=== PATIENT | female | born 1995 | race Caucasian/White ===

== ENCOUNTER → 2024-03-21 07:07 | Outpatient (CLI) | payer OTHER, MEDICAID, SELFPAY ==
--- NOTE | 2024-03-21 07:09 | DI.US.S_ITS ---
PROCEDURE: US OB >= 14 WEEKS FETUS INDICATIONS: ANATOMY SCAN OUTSIDE/PRIOR DATING DATA: Last menstrual period (LMP): Unknown. LMP-based estimated date of delivery (ARTEM): Not applicable. First dating scan (date and location): Unknown. Estimated date of delivery (ARTEM) from first dating scan: Not applicable. The calculations are made using the ARTEM of 07/13/2024. TECHNIQUE: Real-time scanning was performed of the fetus, with image documentation and biometric measurements. Endovaginal scanning: Not performed COMPARISON: None. FINDINGS: General: A single living intrauterine gestation is present. Presentation: Vertex. Placenta: Placental position is anterior , without previa. Amniotic fluid index: 15.8 cm, normal range is 5-24 cm. Single deepest vertical pocket is 4.4 cm. heart rate: 135 beats per minute. Maternal cervical canal: 5 cm long. Normal lower limit is 2.5 cm. biometrics: Biparietal diameter: 5.6 cm, 23 weeks 0 days Head circumference: 20.8 cm, 22 weeks 6 days Abdominal circumference: 19.4 cm, 24 weeks 1 day Femur length: 4.2 cm, 23 weeks 5 days Clinically estimated gestational age: 23 weeks 5 days Composite gestational age from present scan: 23 weeks 3 days Estimated weight and percentile: 632 g, 46 percentile Anatomic survey: Neuro: Ventricles are non-dilated at less than 10 mm. Cisterna magna is normal at 3-11 mm. Cerebellum is normal in size and morphology. Nuchal skin fold: Normal at less than 6 mm between 14-21 weeks gestational age. Face: Nose and lips, facial profile are normal. Spine: No evidence for spina bifida. Heart: 4-chambered heart is present, with normal ventricular outflow tracts. Diaphragm: Diaphragm is intact. Stomach: Left-sided stomach is present. Kidneys: No hydronephrosis. Normal is less than 5 mm in 2nd trimester, less than 7 mm in 3rd trimester. Cord: 3-vessel cord has orthotopic insertion. Bladder: Normal in size. Extremities: All 4 extremities identified. IMPRESSION: Single living intrauterine at 23 weeks 5 days, ARTEM 07/13/2024. Estimated weight of 632 g, 46th percentile. Normal anatomy survey. We strive to produce accurate, complete, and clear reports of imaging services. To assist us in improving patient care, this report was composed using standard report templates and voice recognition software. Therefore, it may contain abnormal punctuation, insertions and/or omissions. Occasional wrong-word or sound-alike substitutions may occur. Though we review the report and make efforts to correct it, we do recommend that the report be read carefully in proper context to recognize any text inaccuracies. Dictated by: Dilan Gardner M.D. on 03/21/2024 at 12:42 Approved by: Dilan Gardner M.D. on 03/21/2024 at 12:48
== END ==
PROVIDERS: Referring Provider Nurse Practitioner Obstetrics & Gynecology; Visit Provider Nurse Practitioner Obstetrics & Gynecology
DX: Z34.92 Encounter for supervision of normal pregnancy, unspecified, second trimester (principal); Z3A.23 23 weeks gestation of pregnancy
CPT/HCPCS: 76811

== ENCOUNTER → 2024-04-19 07:58 | Outpatient (CLI) | payer OTHER, MEDICAID, SELFPAY ==
[2024-04-19 09:34] LABS: Glucose Fasting 87 mg/dL (70-100)
[2024-04-19 10:09] LABS: Glucose 1 Hour 104 mg/dL (70-170)
[2024-04-19 10:37] LABS: Glucose Tol Interpretation INTERPRETATION
[2024-04-19 11:58] LABS: Glucose 2 Hour 94 mg/dL (70-140)
== END ==
PROVIDERS: Referring Provider Nurse Practitioner Obstetrics & Gynecology; Visit Provider Nurse Practitioner Obstetrics & Gynecology
DX: Z34.83 Encounter for supervision of other normal pregnancy, third trimester (principal); Z13.1 Encounter for screening for diabetes mellitus; Z3A.27 27 weeks gestation of pregnancy
CPT/HCPCS: 36415; 82951; 82952

== ENCOUNTER → 2024-06-19 12:43 | Outpatient (CLI) | payer OTHER, MEDICAID, SELFPAY ==
--- NOTE | 2024-06-19 | DI.US.S_ITS ---
PROCEDURE: US OB LIMITED INDICATIONS: GROWTH AND BPP OUTSIDE/PRIOR DATING DATA: Last menstrual period (LMP): Unknown First dating scan (date and location): Unknown Working ARTEM is 07/13/2024. TECHNIQUE: Real-time scanning was performed of the fetus, with image documentation and biometric measurements. Biophysical profile was also obtained. Endovaginal scanning: Not performed. COMPARISON: [facility], OB >= 14 WEEKS FETUS, 03/21/2024, 7:53. FINDINGS: General: A single living intrauterine gestation is present. Presentation: Vertex Placenta: Placental position is anterior, without previa. Amniotic fluid index: 8.4 cm, normal range is 5-24 cm. Single deepest vertical pocket is 4.5 cm. heart rate: 131 beats per minute. Maternal cervical canal: 4.4 cm long. Normal lower limit is 2.5 cm. biometrics: Biparietal diameter: 8.4 cm, 34 weeks 0 days Head circumference: 29.8 cm, 33 weeks 0 days Abdominal circumference: 33.9 cm, 37 weeks 6 days Femur length: 7.2 cm, 36 weeks 5 days Clinically estimated gestational age: 36 weeks 4 days Composite gestational age from present scan: 35 weeks 3 days Estimated weight and percentile: 2959 g, 52nd percentile Biophysical profile: Tone: 2 points. Movement: 2 points. Respiration: 2 points. Largest pocket of fluid: 2 points. IMPRESSION: 1. Single live intrauterine with vertex positioning. 2. Interval growth is within normal limits. 3. Biophysical profile score is 8 of 8. Approved by: Kalin Serrano M.D. on 06/19/2024 at 16:06
== END ==
PROVIDERS: Referring Provider Advanced Practice Midwife; Visit Provider Advanced Practice Midwife
DX: Z34.83 Encounter for supervision of other normal pregnancy, third trimester (principal); Z86.16 Personal history of COVID-19; Z3A.35 35 weeks gestation of pregnancy
CPT/HCPCS: 76815

== ENCOUNTER 2024-07-11 09:33 | Inpatient (IN) | payer OTHER, SELFPAY ==
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
[2024-07-11 10:47] LABS: Add Manual Diff / Slide Review NO; Basophils Absolute Auto 100 /uL (0-100); Basophils Percent Auto 0.5 % (0-2); Eosinophils Absolute Auto 100 /uL (0-450); Eosinophils Percent Auto 1.1 % (2-4); Hematocrit 32.9 % (36-46); Hemoglobin 10.3 g/dL (12.0-16.0); Lymphocytes Absolute Auto 2300 /uL (1100-4500); Lymphocytes Percent Auto 17.6 % (25-40); Mean Corpuscular HGB Conc 31.4 % (30-36); Mean Corpuscular Hemoglobin 24.8 PG (26-34); Mean Corpuscular Volume 78.9 fL (80-100); Monocytes Absolute Auto 1100 /uL (0-900); Monocytes Percent Auto 8.3 % (3-14); Neutrophils Absolute Auto 9400 /uL (1500-7000); Neutrophils Percent Auto 72.5 % (50-75); Platelet Count 308 X10^3/uL (150-400); Red Blood Cell Count 4.17 X10^6/uL (4.0-5.2); Red Cell Distribution Width 16.3 % (11.6-14.8); White Blood Cell Count 12.9 X10^3/uL (4.5-11.0)
[2024-07-11] MEDS: LACTATED RINGERS 1,000 ML 100 ML IV ×2 (10:58→12:00)
[2024-07-11 11:14] VITALS: BP 133/73; PULSE 80; TEMP 36.1
--- NOTE | 2024-07-11 12:01 | PM.OBPNLAB ---
Date/Time Date Patient Seen: 07/11/24 Time Patient Seen: 12:02 Pain Control Pain control: epidural Comments: Now comfortable after epidural placement. Feeling shakey and a nauseous, better after vomiting. VS: BP 116/83, HR 91bpm, T 36.1C Temporal Pelvic Exam Dilation (cm): 4.5 Effacement (%): 90 station: -1 Amniotic membrane status: Intact Comments: OP position Contractions Contraction frequency (min): 3 Contraction duration (min): 1 Contraction pattern: Regular Contraction intensity: Strong/Firm Status status: Category l Heart Rate Baseline: 125 Monitor Accelerations: Present Monitor Decelerations: Absent Monitor Variability: Moderate Assessment and Plan Assessment: active labor (expectant management) Plan: continuous present management Comments: Encouraged position changes with peanut ball. Reassess in 4 hours or sooner, PRN.
--- NOTE | 2024-07-11 12:38 | P.PCN_ITS ---
Regional Block Pre-procedure Procedure: Continuous Lumbar Epidural for L&D (with dural puncture) Attending OB provider: Shyla Staton PMH/ROS narrative: 28yo in labor requesting epidural. See pre-anesthesia evaluation for further details. ASA Class: II Labs: Hct 32.9 % (36-46) L 07/11/24 10:42 Plt Count 308 X10^3/uL (150-400) 07/11/24 10:42 Medications: Current Medications Generic Name Dose Route Start Last Admin Trade Name Freq PRN Reason Stop Dose Admin Calcium Carbonate 1,000 mg 07/11/24 10:16 Calcium Carbonate 500 Mg Tab PO Q2HR PRN Dyspepsia Carboprost Tromethamine 250 mcg 07/11/24 10:16 Carboprost 250 Mcg/Ml Ampul IM Q90M PRN Bleeding Diphenhydramine HCl 25 mg 07/11/24 11:41 Diphenhydramine 50 Mg/Ml Vial IV Q10M PRN Pruritis Diphenhydramine HCl 25 mg 07/11/24 11:42 Diphenhydramine 50 Mg/Ml Vial IV 07/12/24 11:43 Q3HR PRN PRURITUS Ephedrine Sulfate 10 mg 07/11/24 11:41 Ephedrine 50 Mg/Ml Vial IV Q5M PRN Blood pressure decrease more than 20% of baseline. Fentanyl 100 mcg 07/11/24 10:16 Fentanyl 100 Mcg/2 Ml Inj IV Q1H PRN Pain, Severe (7-10) Oxytocin/Lactated Ringer's 30 unit in 500 mls @ 200 mls/hr 07/11/24 10:16 Oxytocin Premix IV CONT PRN Bleeding Protocol Tranexamic Acid 1,000 mg/ 100 mls @ 600 mls/hr 07/11/24 10:16 Sodium Chloride IV NOW PRN Bleeding Lactated Ringer's 1,000 mls @ 100 mls/hr 07/11/24 10:30 07/11/24 12:00 Lactated Ringers IV 07/11/24 20:29 100 mls/hr CONT QUINCY Administration FENT 2MCG/ML BUPIV 0.125% EPI 200 mcg in 100 mls @ 6 mls/hr 07/11/24 11:45 Fentanyl/Bupiv/Ns 2mcg/Ml - 0.125% EPIDURAL CONT QUINCY Lidocaine HCl 20 ml 07/11/24 10:16 Lidocaine 1% 20 Ml INJ INTRA-OP PRN Post Delivery Methylergonovine Maleate 0.2 mg 07/11/24 10:16 Methylergonovine 0.2 Mg Tablet PO Q6HR PRN Heavy Bleeding Methylergonovine Maleate 0.2 mg 07/11/24 10:16 Methylergonovine 0.2 Mg/Ml Vial IM NOW PRN Bleeding Metoclopramide HCl 10 mg 07/11/24 11:42 Metoclopramide 10 Mg/2 Ml Inj IV 07/12/24 11:42 Q4H PRN Nausea Mineral Oil 30 ml 07/11/24 10:16 Mineral Oil 30 Ml Udc TOP PRN PRN Version Misoprostol 800 mcg 07/11/24 10:16 Misoprostol 200 Mcg Tablet TN NOW PRN Bleeding Misoprostol 400 mcg 07/11/24 10:16 Misoprostol 200 Mcg Tablet SL NOW PRN Bleeding Naloxone HCl 0.2 mg 07/11/24 10:16 Naloxone 0.4 Mg/Ml Vial IV Q2MIN PRN Opiate Reversal Ondansetron HCl 4 mg 07/11/24 10:16 Ondansetron 4 Mg/2 Ml Inj IV Q4HR PRN Nausea And Vomiting Ondansetron HCl 4 mg 07/11/24 11:42 Ondansetron 4 Mg/2 Ml Inj IV 07/12/24 11:42 Q6HR PRN Nausea Oxytocin 10 unit 07/11/24 10:16 Oxytocin 10 Unit/Ml Vial IM NOW PRN Bleeding Promethazine HCl 25 mg 07/11/24 11:14 Promethazine 25 Mg Tablet PO Q4HR PRN Nausea Allergies: Allergies Allergy/AdvReac Type Severity Reaction Status Date / Time No Known Drug Allergies Allergy Verified 07/11/24 10:24 Procedure Insertion date: 07/11/24 Insertion time: 11:23 Prep/Local: 1% lidocaine (Chloraprep) Interspace: L3-4 Patient position: sitting Needle: 18 gauge Shaytead (27g 5 Pencan for dural puncture) Loss of resistance with: saline VIPUL at (cm): 5 Catheter placed at SKIN (cm): 13 Catheter in SPACE (cm): 8 Insertion: Yes CSF, No Blood, No Paresthesia with insertion, No Paresthesia with injection and No Test dose reaction Infusion INFUSION: 0.125% bupivacaine and with fentanyl 2 mcg/mL Initial rate (mL/hr): 8 Subsequent interventions: Pump started at 11:38. Pt rated pain 10/10 before e pidural, 5 at time pump started and appears much more comfortable, moving BLE. 14:43 - Called b/c pt has had her water broken and is now in more discomfort; has pushed PCEA button several times per RN. Pt reports pain 5/10 with contractions. She says her RLE is like a brick but she can feel and move her LLE, and she is lying with left side down. Epidural bolused with 8 ml lido 2% PF and infusion increased to 10 ml/hr. Post-procedure Anesthesia date START: 07/11/24 Anesthesia time START: 11:13 Anesthesia date END: 07/11/24 Anesthesia time END: 15:59 Post-procedure Anesthesia Assessment: Yes CV function: HR/BP stable, Yes Resp function: RR/sat/airway adequate, Yes Post-op hydration adequate, Yes Pain control adequate, Yes Nausea & vomiting absent, Yes Temperature > 36 C, Yes Mental status appropriate and No Anesthesia complications
--- NOTE | 2024-07-11 14:04 | PM.OBPNLAB ---
Date/Time Date Patient Seen: 07/11/24 Time Patient Seen: 14:00 Pain Control Pain control: epidural Comments: CNM called by RN for contractions spaced to 3-8 minutes apart. Margarita remains comfortable with a MEJIA in place and is open to augmentation at this time. VS: BP 116/72, HR 85bpm, T 36.2C Temporal Pelvic Exam Dilation (cm): 5 Effacement (%): 90 (mild edema) station: -1 Amniotic membrane status: Ruptured (AROM, clear) Contractions Contraction frequency (min): 6 Contraction duration (min): 1 Contraction pattern: Regular Contraction intensity: Moderate Status status: Category l Heart Rate Baseline: 125 Monitor Accelerations: Present Monitor Decelerations: Absent Monitor Variability: Moderate Assessment and Plan Assessment: active labor Plan: begin patient augmentation (AROM performed) Comments: Continue to encourage position changes. Will consider pitocin in 2 hours if no change in contraction pattern. Repeat CE in 4 hours or sooner, PRN.
[2024-07-11] MEDS: OXYTOCIN PREMIX 30 UNIT/500 ML PLAST..BAG 225 UNIT IV (16:10)
--- NOTE | 2024-07-11 16:29 | P.PCNOB_ITS ---
Events: Labor Augmentation Labor & Delivery Delivery date: 07/11/24 Delivery Time: 15:59 Intrapartal Events: None Cervical ripening method: none Induction method: none Delivery augmentation: rupture of membranes Delivery monitor: external FHT and external uterine Route of delivery: L&D Laceration Description: None Quantitative Blood Loss: 100 Anesthesia Type: Epidural Narrative: Margarita progressed quickly after AROM with adequate relief from the epidural. Called by nurse for pt report of pressure and CE of C/C/+1. After CNM entered the room, Margarita began to push in reclined position with assistance from friend and nurse with her legs. She pushed well with coaching and encouragement. NSVB of a single, vigorous baby girl emerged AMBROCIO. [place] was placed on maternal abdomen for drying and skin to skin. Pitocin was started for AMTSL. After 10 minutes of life, baby showed increased work of breathing, at which point cord was double clamped by SNM and cut by friend, and was taken to warmer for assessment; RT paged. Cord blood was collected and sent to the lab. With a single maternal push and gentle downward traction, an apparently intact placenta with 3 vessel cord was delivered, Vazquez presentation. QBL 100mL. Vagina, perineum and labia were inspected and found to be intact. in warmer in room receiving heated high flow. Mother and baby stable as I left the room. Baby 1: Infant gender: Female Presentation: vertex Position: Left Occiput Anterior Placenta delivery description: Spontaneous Cord Vessel Description: 3 Vessels score (1 min): 9 score (5 min): 7 weight: 3.399 kg Plan for aftercare: Routine care
[2024-07-11] MEDS: DERMOPLAST SPRAY 20% 60 ML 1 SPRAY TOP (18:26)
[2024-07-11] MEDS: WITCH HAZEL/GLYCERIN PADS 1 EACH TOP (18:26)
[2024-07-11] MEDS: KETOROLAC 30 MG/ML VIAL IV (18:26)
[2024-07-11 19:18] VITALS: BP 133/87
[2024-07-12] MEDS: IBUPROFEN 600 MG TABLET PO ×2 (03:11→10:01)
[2024-07-12] MEDS: LANOLIN OINT 7 GM 1 APPLIC TOP (03:12)
--- NOTE | 2024-07-12 09:54 | P.DS_ITS ---
Discharge Providers Provider Date of admission: 07/11/24 09:33 Discharge Date: 07/12/24 Primary care physician: Doctor Selvin MD Consults: 07/11/24 10:16 Consult to Anesthesiology Urgent Comment: Consulting Provider: Genesis Navarrete Reason for consultation: Epidural Has provider been notified: No 07/12/24 16:24 Consult to [facility]ative [facility] Aide Routine Comment: Discharge provider: Shyla Staton CNM Summary Hospital Course Date Patient Seen: 07/12/24 Time Patient Seen: 09:56 Diagnoses: O80 Hospital Course: 18 hours s/p NSVB: Voiding, ambulating and independently. Tolerating a general diet. Cramping pain is well controlled with ibuprofen. Vaginal bleeding is light, without clots. Eager for discharge to home today with her baby. Peripartum Data Delivery Method: Natural Vaginal Laceration Description: None Episiotomy description: None Procedures: O80 complications: none [place] 1: Gender: Female Disposition of : home Discharge Diagnosis (1) Encounter for full-term uncomplicated delivery: Status: Acute Status at Discharge Cognitive/behavioral status at discharge: oriented and calm Functional status at discharge: independent ambulation Overall status at discharge: patient is progressing back to baseline Time Spent with Patient Time attestation: Total time spent providing and/or coordinating discharge services: Objective Labs 07/11/24 10:42 Labs: Laboratory Results - last 24 hr 07/11/24 07/11/24 10:08 10:42 WBC 12.9 H RBC 4.17 Hgb 10.3 L Hct 32.9 L MCV 78.9 L MCH 24.8 L MCHC 31.4 RDW 16.3 H Plt Count 308 Neut % (Auto) 72.5 Lymph % (Auto) 17.6 L [place] % (Auto) 8.3 Eos % (Auto) 1.1 L Baso % (Auto) 0.5 Neut # (Auto) 9400 H Lymph # (Auto) 2300 [place] # (Auto) 1100 H Eos # (Auto) 100 Baso # (Auto) 100 Blood Type O Positive Antibody Screen Negative Exam Vital Signs (past 8 hours): BP 132/86, HR 85bpm, T 98.9F Temporal Const General: healthy appearing and comfortable Other: Fundus firm @ U-1, scant rubra lochia. Psych Appearance: grossly normal Mood: congruent mood Affect: normal affect Discharge Plan Discharge Plan Patient Disposition: Home Discharge orders & Medications Prescriptions: New ibuprofen 600 mg Tablet 600 mg PO Q6HR PRN (Reason: Pain, Mild (1-3)) 14 Days Qty: 60 0RF Continued acyclovir 800 mg tablet 800 mg PO Q8H ferrous sulfate 325 mg (65 mg iron) tablet,delayed release (DR/EC) 325 mg PO DAILY Follow up/Referrals: Doctor Selvin, [Primary Care Provider] - ( 2 wk follow-up phone call on 07/21/24 @ 0945 6 wk folow-up in office on 08/21/24 @ 1030) Shyla Staton CNM [[facility] Hel[facility]] - (2 wk follow-up phone call on 07/21/24 @ 0945 6 wk follow-up in office on 08/21/24 @ 1030) Diet/Activity/Treatments Diet: Diet as Tolerated and Regular Activity: bed rest x 2 weeks, no heavy lifting for 4 weeks, pelvic rest x 6 weeks Skin/Wound/Dressing Care Report to your healthcare provider any signs of infection, such as:: chills, fever, increased pain, unusual drainage and unusual redness Visit Report/Discharge Packet Instructions: DI for Hemorrhage, DI for Depression Stand Alone Forms: Discharge: Care, Patient Portal/API Discharge Data Primary Care Provider: Doctor Selvin Attending Provider: Mariana Hurst Admit Date/Time: 07/11/24 09:33
[2024-07-12] MEDS: MEASLES,MUMPS,RUBELLA VACC/PF 0.5 ML VIAL SUBCUT (11:22)
== END 2024-07-12 12:40 | disposition home or self-care (01) | DRG 560 ==
PROVIDERS: Nurse Practitioner Obstetrics & Gynecology; Admitting Provider Advanced Practice Midwife; Referring Provider Advanced Practice Midwife; Visit Provider Advanced Practice Midwife
DX: O98.52 Other viral diseases complicating childbirth (principal); B00.9 Herpesviral infection, unspecified; Z3A.39 39 weeks gestation of pregnancy; Z37.0 Single live birth
CPT/HCPCS: 36415; 59050; 85025; 86850; 86900; 86901; G0378; G0379; J1885; J2590